=== PATIENT | female | born 1985 ===

== ENCOUNTER 2020-08-17 10:00 | Inpatient (IN) | payer OTHER ==
[~2020-08-17] VITALS: Ht 170.2 cm; Wt 68.0 kg
[2020-08-17] MEDS ORDERED: AVAPRO150 MG PO (13:48)
[2020-08-17] MEDS ORDERED: IRON325 MG PO ×2 (13:49)
[2020-08-18] MEDS ORDERED: TRETINOIN20 G2 (16:08)
[2020-08-18] MEDS ORDERED: OZEMPIC0.25 MG/0. (16:09)
== END 2020-08-22 13:40 | disposition home or self-care (01) | DRG 743 ==
LOC: O/R 08-18 09:33 → SURH 08-18 10:00 → SURG 08-18 20:48 → SURH 08-19 12:45
PROVIDERS: ADMIT Specialist; ATTEND Specialist
PROC: 30233N1 Transfusion of Nonautologous Red Blood Cells into Peripheral Vein, Percutaneous Approach (ICD-10-PCS; 2020-08-18)
PROC: 0UB90ZZ Excision of Uterus, Open Approach (ICD-10-PCS; principal; 2020-08-18 17:15)
DX: D25.1 Intramural leiomyoma of uterus (principal); N72 Inflammatory disease of cervix uteri; D64.9 Anemia, unspecified